=== PATIENT | male | born 1990 | race Hispanic/Latino ===

== ENCOUNTER 2023-05-12 18:11 | Emergency (ER) | payer OTHER ==
[~2023-05-12] VITALS: Ht 170.2 cm; Wt 90.7 kg
[2023-05-12] MEDS ORDERED: ACETAMINOPHEN 325 MG TAB PO ONE (18:30)
[2023-05-12] MEDS ORDERED: LIDOCAINE HCL 1% 20 ML VIAL ONE (19:33)
[2023-05-12 21:31] VITALS: BP 145/74; PULSE 88; RESP 18; O2SAT 99
== END 2023-05-12 21:32 | disposition home or self-care (01) ==
LOC: EDH 18:11
DX: S01.111A Laceration without foreign body of right eyelid and periocular area, initial encounter (principal); S01.511A Laceration without foreign body of lip, initial encounter; S09.90XA Unspecified injury of head, initial encounter; Y08.89XA Assault by other specified means, initial encounter; Y93.89 Activity, other specified; Y92.89 Other specified places as the place of occurrence of the external cause; Y99.8 Other external cause status
CPT/HCPCS: 12011; 70486